=== PATIENT | female | born 1960 | race Caucasian/White ===

== ENCOUNTER 2017-05-17 14:32 | Emergency (ER) | payer OTHER | END 2017-05-17 15:48 | disposition home or self-care (01) | LOC: BURERS 14:32 | DX: S80.862A Insect bite (nonvenomous), left lower leg, initial encounter (principal); F17.200 Nicotine dependence, unspecified, uncomplicated; E78.5 Hyperlipidemia, unspecified; W57.XXXA Bitten or stung by nonvenomous insect and other nonvenomous arthropods, initial encounter | CPT/HCPCS: 99282 ==